=== PATIENT | male | born 1965 | race Caucasian/White ===

== ENCOUNTER 2023-12-04 15:02 | Emergency (ER) | payer BC, SELFPAY ==
[2023-12-04] VITALS (14 sets, daily range): BP systolic 95–146; BP diastolic 57–90; BMI 33.9
[2023-12-04 17:04] LABS: % Basophils 0.3 % (0-2); % Eosinophils 0.1 % (0-6); % Immature Granulocytes 0.7 % (0-0.5); % Lymphocytes 9.3 % (20.5-51.1); % Monocytes 4.7 % (1.7-9.3); % Neutrophils 84.9 % (42.2-75.2); Absolute Immature Granulocytes 0.1 10^3/uL (0-0.05); Absolute Lymphocytes 1.4 10^3/uL (1.2-3.4); Absolute Monocytes 0.7 10^3/uL (0.1-0.6); Absolute Neutrophils 12.4 10^3/uL (1.4-6.5); Hematocrit 42.5 % (39.0-52.0); Hemoglobin 14.9 g/dL (13.0-18.0); Mean Corp Hgb Conc. 35.1 g/dL (33.0-37.0); Mean Corpuscular Volume 79.7 fL (80.0-94.0); Mean Platelet Volume 9.1 fL (7.4-10.4); Nucleated Red Blood Cells % 0 % (-); Platelet Count 246 10^3/uL (130-400); Red Blood Cell Count 5.33 10^6/uL (4.70-6.10); Red Cell Dist. Width 13.2 % (11.5-14.5); White Blood Cell Count 14.6 10^3/uL (4.8-10.8)
[2023-12-04 17:11] LABS: Blood Urea Nitrogen 23 mg/dl (9-20); Calcium 10.1 mg/dl (8.4-10.2); Carbon Dioxide 23 mmol/L (22-30); Chloride 99 mmol/L (98-107); Estimated Creatinine Clearance 120 ml/min; Glucose 153 mg/dl (70-99); Potassium 4.3 mmol/L (3.5-5.1); Sodium 132 mmol/L (135-145); eGFR > 60.00
[2023-12-04] MEDS: MORPHINE SULFATE 4 MG IV (17:13)
--- NOTE | 2023-12-04 17:39 | ED.GENMED ---
History of Present Illness
<Sampson Givens PA-C - Last Filed: 12/04/23 19:59>
General
Chief Complaint: Fall
Source: patient
Time Seen by Provider: 12/04/23 16:19
Travel History
Have you had any contact with someone who has COVID-19?: No
Do you have any symptoms of coronavirus? Fever > 100 degrees, chills, cough, shortness of breath, sore throat, loss of taste or smell, muscle aches, or headache?: No
History of Present Illness
History of Present Illness:
58-year-old male with past medical history of hypertension and diabetes presenting to the emergency department for evaluation after he fell down approximately two thirds of an escalator while at the [employer] resulting in
multiple facial injuries, abrasions and contusions to the right side of his body noting right-sided orbital pain, ecchymosis and right-sided rib pain. Patient denies any loss consciousness, vomiting, visual changes, use of anticoagulants, neck pain
or stiffness, focal weakness or numbness or any other symptoms. He did not take anything for pain prior to arrival. Patient states his biggest area of concern is right side orbital pain.
Past History
<Sampson Givens PA-C - Last Filed: 12/04/23 19:59>
Past History
ED Past Medical History: HTN and NIDDM
ED Past Surgical History: Other (Hernia)
Social History
Tobacco: Non-smoker
Alcohol: None
Drug: None
Personal:
Living: with family
Employment: Employed
Review of Systems
<Sampson Givens PA-C - Last Filed: 12/04/23 19:59>
Review of Systems
All Other Systems: ROS reviewed and negative except as documented in HPI and ROS
Phy Exam
<Sampson Givens PA-C - Last Filed: 12/04/23 19:59>
Physical Exam
Physical Exam:
TRAUMA EXAM:
VITAL SIGNS: Vital signs reviewed, cooperative
DISTRESS: No active disease
EYES: Inferior orbit hematoma with tenderness directly overlying this, pupils 3 mm, EOMI but patient does have comfort when moving the right eye laterally but there is no entrapment. No proptosis
NOSE: No deformity or epistaxis
FACE AND SCALP: Multiple superficial abrasions to the right side of the face
NECK: Supple nontender
BACK: Right side of the back is diffusely tender again with multiple abrasions from the escalator steps
RESPIRATORY: No distress, breath sounds normal, no tender chest wall
CARDIAC: No murmur, pulses equal and strong
ABDOMEN: Soft nontender bowel sounds normal
SKIN: Abrasion of the right anterior knee and superficial abrasions over the right distal leg no bleeding, color normal
EXTREMITIES: Nontender
NEUROLOGICAL: Alert, oriented, no motor deficits
PSYCH: Mood affect normal
Scores
<Sampson Givens PA-C - Last Filed: 12/04/23 19:59>
Heart Failure Risk
Heart Failure Risk Score: Not Applicable
Heart Score for Chest Pain Patients
STEMI patient?: Not applicable
Withdrawal Assessment of Alcohol
Withdrawal Assessment Completed?: Not applicable
Course
<Sampson Givens PA-C - Last Filed: 12/04/23 19:59>
Orders/Labs/Results
Orders:
Orders
12/04/23 15:21
CT Head W/o Iv Contrast Urgent
Comment:
Reason For Exam: [place] hit right eye
Facial Bones wo Contrast CT [CT Facial Bones W/o Iv Contras] Urgent
Comment:
Reason For Exam: fell on escalator and hit right side of face
12/04/23 16:21
CT Chest/abd/pel W Iv Cont Urgent
Reason For Exam: fall down escalator, right sided rib pain
12/04/23 16:40
Basic Metabolic Panel Urgent
Complete Blood Count/With Diff Urgent
12/04/23 17:08
Morphine Sulfate 4 mg IV NOW STA
12/04/23 18:26
HYDROmorphone [Dilaudid] 0.5 mg IV NOW STA
12/04/23 18:50
Cervical Collar- Treatment ONCE
Collar Type: Hard Cervical Collar
Abnormal Lab Results
12/04/23
16:40
WBC 14.6 H 10^3/uL
(4.8-10.8)
MCV 79.7 L fL
(80.0-94.0)
Abs Immat Gran (auto) 0.1 H 10^3/uL
(0-0.05)
Absolute Neuts (auto) 12.4 H 10^3/uL
(1.4-6.5)
Absolute Monos (auto) 0.7 H 10^3/uL
(0.1-0.6)
Immature Gran % 0.7 H %
(0-0.5)
Neutrophils % 84.9 H %
(42.2-75.2)
Lymphocytes % 9.3 L %
(20.5-51.1)
Sodium 132 L mmol/L
(135-145)
BUN 23 H mg/dl
(9-20)
Glucose 153 H mg/dl
(70-99)
12/04/23 16:40
12/04/23 16:40
Vital Signs
Initial and Last Documented VS:
Initial Vital Signs
Temp Pulse Resp BP Pulse Ox
98.0 F 81 16 146/86 98
12/04/23 15:19 12/04/23 15:19 12/04/23 15:19 12/04/23 15:19 12/04/23 15:19
Last Documented Vital Signs
Temp Pulse Resp BP Pulse Ox
98.0 F 82 17 112/64 96
12/04/23 15:19 12/04/23 18:45 12/04/23 18:45 12/04/23 18:45 12/04/23 18:45
<Rudolph Snider, DO - Last Filed: 12/04/23 19:00>
Orders/Labs/Results
Orders:
Orders
12/04/23 15:21
CT Head W/o Iv Contrast Urgent
Comment:
Reason For Exam: [place] escalator [place] airport today hit right eye
Facial Bones wo Contrast CT [CT Facial Bones W/o Iv Contras] Urgent
Comment:
Reason For Exam: fell on escalator and hit right side of face
12/04/23 16:21
CT Chest/abd/pel W Iv Cont Urgent
Reason For Exam: fall down escalator, right sided rib pain
12/04/23 16:40
Basic Metabolic Panel Urgent
Complete Blood Count/With Diff Urgent
12/04/23 17:08
Morphine Sulfate 4 mg IV NOW STA
12/04/23 18:26
HYDROmorphone [Dilaudid] 0.5 mg IV NOW STA
12/04/23 18:50
Cervical Collar- Treatment ONCE
Collar Type: Hard Cervical Collar
Abnormal Lab Results
12/04/23
16:40
WBC 14.6 H 10^3/uL
(4.8-10.8)
MCV 79.7 L fL
(80.0-94.0)
Abs Immat Gran (auto) 0.1 H 10^3/uL
(0-0.05)
Absolute Neuts (auto) 12.4 H 10^3/uL
(1.4-6.5)
Absolute Monos (auto) 0.7 H 10^3/uL
(0.1-0.6)
Immature Gran % 0.7 H %
(0-0.5)
Neutrophils % 84.9 H %
(42.2-75.2)
Lymphocytes % 9.3 L %
(20.5-51.1)
Sodium 132 L mmol/L
(135-145)
BUN 23 H mg/dl
(9-20)
Glucose 153 H mg/dl
(70-99)
12/04/23 16:40
12/04/23 16:40
Vital Signs
Initial and Last Documented VS:
Initial Vital Signs
Temp Pulse Resp BP Pulse Ox
98.0 F 81 16 146/86 98
12/04/23 15:19 12/04/23 15:19 12/04/23 15:19 12/04/23 15:19 12/04/23 15:19
Last Documented Vital Signs
Temp Pulse Resp BP Pulse Ox
98.0 F 82 17 112/64 96
12/04/23 15:19 12/04/23 18:45 12/04/23 18:45 12/04/23 18:45 12/04/23 18:45
<Sampson Givens PA-C - Last Filed: 12/04/23 19:59>
MDM/Problems Addressed
Differential Diagnosis Includes:
Contusion/abrasion, concussion, intracranial bleeding, facial fracture, rib fractures, visceral injury
MDM/Problems Addressed:
58-year-old male presenting the emergency department for evaluation following [place] CT of the head and facial bones were ordered from triage and ultimately showed a zygomatic arch fracture as well
as orbital floor fracture. I had seen the patient after the scans were already done and given his trauma and mechanism decision was ultimately made to send patient back to CT scan for chest abdomen and pelvis CT. Morphine ordered for pain control.
Patient states he has an allergy to Percocet but has tolerated other opiates in the past. Will reassess. Disposition pending
<Sampson Givens PA-C - Last Filed: 12/04/23 19:59>
*Radiology
Radiology exam reviewed: radiology read reviewed
*Pulse Oximetry
Patient hypoxic: no
*Critical Care Note
Total Time (30-74mins, 75-104mins- exclusive of procedures): 30
comment:
Critical care statement: A total of 30 minutes of critical care time was provided for this patient. This includes management of unstable vital signs, evaluation of the patient at bedside, reviewing the patient's pertinent medical records, discussion
with consultants, review of old EKGs and review of pertinent medical records. This time with separate from time utilized to perform the aforementioned documented procedures
<Sampson Givens PA-C - Last Filed: 12/04/23 19:59>
Patient Management
Discussion with other providers: [employer]
Escalation/DeEscalation of care consider admission/obs:
Patient CT of the chest abdomen pelvis revealed 4 rib fractures of the fifth 6, 7 and eighth ribs in addition to the already known facial fractures. Given the mechanism combined with injuries seen decision was ultimately made to transfer patient to
trauma facility. Patient requesting [facility]. I spoke to Dr. Martin who is on-call for trauma surgery who accepts the patient in transfer.
ED Attending Note
<Sampson Givens PA-C - Last Filed: 12/04/23 19:59>
-
Portions of this chart may have been created with voice recognition software.� Occasional wrong word or��sound alike� substitutions may have occurred due to the inherent limitations of voice recognition software.
<Rudolph Snider DO - Last Filed: 12/04/23 19:00>
ED Attending Note
Patient seen and examined by attending physician: Yes
I performed the substantive portion of visit, reviewed & personally made and approve the management plan that is documented in note by myself or MALINDA.: Yes
ED Attending Note:
I have seen and evaluated the patient with a [id number] encounter. I have spoken to the advance practicer provider and involved in the medical history, the physical exam, medical decision making.
Evaluation and management service: agree unless noted differently below.
Results interpretation: agree unless noted differently below.
Focused HPI: 58-year-old male presenting with several injuries after falling on escalator
Physical exam: Sitting in bed and appears somewhat comfortable. Bruising to right lower eyelid, multiple abrasions to back and extremities. Right-sided rib tenderness
Medical Decision Making: Given the multitude of traumatic injuries, will transfer to a trauma center. Cervical collar placed
Discharge Plan
Departure
Patient Disposition: Acute Care Hospital
Date of Disposition: 12/04/23
Time of Disposition: 18:51
Discharge Problem:
Closed fracture of right zygomatic arch, Closed fracture of right orbit, multiple right rib fracture, Abrasion of knee, right
Prescriptions:
No Action
sennosides [senna] 1 TABLET tablet
2 tab PO DAILY Qty: 60 0RF
acetaminophen-codeine 1 TABLET tablet
1 tab PO Q4HPRN PRN (Reason: Headache) Qty: 60 0RF
Rx Instructions:
1 tablet moderate, 2 tablets severe
amlodipine 10 MG tablet
10 mg PO DAILY Qty: 30 0RF
pantoprazole 40 MG tablet,delayed release (DR/EC)
40 mg PO DAILY Qty: 30 0RF
metoprolol tartrate 50 MG tablet
50 mg PO Q12 Qty: 60 0RF
docusate sodium 100 MG capsule
100 mg PO BID Qty: 60 0RF
gabapentin 300 MG capsule
300 mg PO HS Qty: 30 0RF
bisacodyl 5 MG tablet,delayed release (DR/EC)
10 mg PO DAILYPRN PRN (Reason: constipation) 0RF
furosemide 20 MG tablet
20 mg PO DAILY Qty: 30 0RF
gabapentin 100 MG capsule
100 mg PO BID@0700,1300 Qty: 60 0RF
losartan 100 MG tablet
100 mg PO DAILY Qty: 30 0RF
metformin 500 MG tablet extended release 24 hr
2,000 mg PO DAILY Qty: 120 0RF
sodium chloride 1 GRAM tablet,soluble
1 g PO TID Qty: 90 0RF
sitagliptin phosphate [Januvia] 100 MG tablet
100 mg PO QPM Qty: 30 0RF
dapagliflozin propanediol [Farxiga] 5 MG tablet
5 mg PO DAILY Qty: 30 0RF
Referrals:
Mando Zimmerman MD [Family Provider] -
Hospital Transfer
Other hospital: [facility]
I certify that the patient requires transfer: Yes
Discussed case with accepting physician: Dr. Martin
Reason for transfer: availability of service
Interventions
Interventions:
*General Assessment Last Done: 12/04/23 16:35
ED-Musculoskeletal Assessment Last Done: 12/04/23 16:13
ED- Neurological Assessment Last Done: 12/04/23 16:37
ED-Skin Assessment Last Done: 12/04/23 16:13
Discharge Date and Time
Print Language: YAKUT
[2023-12-04] MEDS: DILAUDID 0.5 MG IV (18:38)
== END 2023-12-04 21:47 | disposition short-term general hospital (02) ==
LOC: EMR 15:02
PROVIDERS: Physician Assistant Medical; EMERGENCY PHYSICIAN Student in an Organized Health Care Education/Training Program; FAMILY PHYSICIAN Family Medicine
DX: S02.85XA Fracture of orbit, unspecified, initial encounter for closed fracture (principal); S02.40EA Zygomatic fracture, right side, initial encounter for closed fracture; S22.41XA Multiple fractures of ribs, right side, initial encounter for closed fracture; S00.81XA Abrasion of other part of head, initial encounter; W10.0XXA Fall (on)(from) escalator, initial encounter; I10 Essential (primary) hypertension; Z88.5 Allergy status to narcotic agent
CPT/HCPCS: 99291; 96374; 96375; 70450; 70486; 71260; 74177; 80048; 85025; Q9967

== ENCOUNTER → 2024-07-05 15:37 | Outpatient (REF) | payer BC, SELFPAY | LOC: MRI 3T 15:37 | PROVIDERS: ATTENDING PHYSICIAN Specialist; FAMILY PHYSICIAN Family Medicine | DX: D32.0 Benign neoplasm of cerebral meninges (principal); R26.0 Ataxic gait | CPT/HCPCS: 70553; A9575 ==